=== PATIENT | male | born 1995 | race Caucasian/White ===

== ENCOUNTER 2025-06-30 15:36 | Outpatient (CLI) | payer OTHER, SELFPAY ==
--- NOTE | 2025-06-30 16:00 | CRLHL7_ITS ---
For Patients: As a result of the Century Cures Act, medical imaging exams and procedure reports are released immediately into your electronic medical record. You may view this report before your referring provider. If you have questions, please contact your health care provider. INDICATION: Nasal injury. COMPARISON: None. TECHNIQUE: Noncontrast CT of the facial bones. FINDINGS: No facial fractures. Specifically, the nasal bones, zygomatic arches, and bony orbits are intact. No fractures of the mandible. Normal articulation at the bilateral temporomandibular joints. Small mucous tension cyst left maxillary sinus. Otherwise, remaining visualized paranasal sinuses are clear. S shaped nasal septal deviation. Nasal cavity is otherwise clear. Mastoid air cells are clear. Normal orbits bilaterally. No soft tissue swelling of the face. IMPRESSION: 1. No facial fractures. 2. S shaped nasal septal deviation. 3. Visualized paranasal sinuses and mastoid air cells are clear. Please note that all CT scans at this facility use dose modulation, iterative reconstruction, and/or weight-based dosing when appropriate to reduce radiation dose to as low as reasonably achievable. Dictated by Roel Clinton MD @ 07/01/2025 11:03:28 AM (Electronically Signed)
== END 2025-06-30 15:37 | disposition home or self-care (01) ==
PROVIDERS: Visit Provider Physician Assistant Surgical
DX: J34.89 Other specified disorders of nose and nasal sinuses (principal); J34.2 Deviated nasal septum; S09.93XA Unspecified injury of face, initial encounter
CPT/HCPCS: 70486